=== PATIENT | female | born 1970 | race Asian ===

== ENCOUNTER 2017-01-26 18:45 | Inpatient (IN) | payer MEDICAID ==
[~2017-01-26] VITALS: Ht 157.5 cm; Wt 59.0 kg
[~2017-01-26 18:45] MED LIST: Haloperidol 5mg/ml Inj ONE; LORazepam Inj 2mg/ml 1ml ONE
[2017-01-26] MEDS ORDERED: LORazepam Inj 2mg/ml 1ml IM ONE (19:00)
[2017-01-26] MEDS ORDERED: Haloperidol 5mg/ml Inj IM ONE ×2 (19:00→19:15)
[2017-01-26 19:15] VITALS: BP 102/68
[2017-01-26 20:00] VITALS: BP 102/68
[2017-01-26 20:26] LABS: MEAN CORPUSCULAR HEMOGLOBIN 29.8 PG (27.0-31.0); MEAN CORPUSCULAR HGB CONC 33.2 G/DL (32.0-36.0); MEAN CORPUSCULAR VOLUME 90 FL (80-99); MEAN PLATELET VOLUME 7.6 FL (6.5-10.1); PLATELET COUNT 227 K/UL (150-450); RED BLOOD COUNT 4.33 M/UL (4.20-5.40); RED CELL DISTRIBUTION WIDTH 12.9 % (11.6-14.8); WHITE BLOOD COUNT 19.5 K/UL (4.8-10.8)
[2017-01-26 20:33] LABS: BASOPHILS % (AUTO) 0.4 % (0.0-2.0); EOSINOPHILS % (AUTO) 0.1 % (0.0-3.0); LYMPHOCYTES % (AUTO) 4.8 % (20.0-45.0); MONOCYTES % (AUTO) 5.2 % (1.0-10.0); NEUTROPHILS % (AUTO) 89.5 % (45.0-75.0)
[2017-01-26 20:46] LABS: ACETAMINOPHEN < 10 ug/mL (10-30); ALANINE AMINOTRANSFERASE 10 U/L (3-33); ALBUMIN/GLOBULIN RATIO 1.3 (1.0-2.7); ALCOHOL < 10 mg/dL; ANION GAP 19 (5-15); ASPARTATE AMINO TRANSFERASE 30 U/L (5-40); CALCIUM 9.2 mg/dL (8.6-10.2); CARBON DIOXIDE 22 mEQ/L (20-30); CHLORIDE 98 mEQ/L (98-107); GLOMERULAR FILTRATION RATE 59.7 mL/min (>60); HEMOLYSIS 13; POTASSIUM 2.9 mEQ/L (3.4-4.9); SODIUM 139 mEQ/L (135-145); TOTAL PROTEIN 7.5 g/dL (6.6-8.7)
--- NOTE | 2017-01-26 22:29 | Emergency Room Report ---
History of Present Illness General Chief Complaint: Behavioral Complaint Source: EMS (THO FRANCO) Present Illness HPI The patient is a 46 old female brought in by ambulance accompanied by police department for bizarre behavior. The patient was said to have been running around in the street and striking cars. She does not provide any information at this time. The patient is yelling nonsensically and thrashing about. (THO FRANCO) Allergies: Coded Allergies: UNABLE TO ASSESS (Unverified , 01/26/17) Patient History Past Medical History: see triage record Pertinent Family History: none Last Menstrual Period: unk Reviewed Nursing Documentation: PMH: Agreed, PSxH: Agreed (THO FRANCO) Nursing Documentation-PMH Past Medical History: No Stated History (THO FRANCO) Review of Systems All Other Systems: limited (THO FRANCO.Edda) Physical Exam Vital Signs Date Time Temp Pulse Resp B/P Pulse Ox O2 Delivery O2 Flow Rate FiO2 01/26/17 20:00 97.8 123 20 102/68 100 Room Air Sp02 EP Interpretation: reviewed, normal General Appearance: alert, GCS 15, non-toxic, moderate distress Head: normocephalic, atraumatic Eyes: bilateral eye PERRL, bilateral eye normal inspection Respiratory: chest non-tender, lungs clear, normal breath sounds, speaking full sentences Cardiovascular #1: no gallop, no murmur, no rub, tachycardia Gastrointestinal: normal bowel sounds, non tender, soft, non-distended, no guarding, no rebound Musculoskeletal: back normal, gait/station normal, normal range of motion, non- tender Neurologic: motor strength/tone normal, sensory intact Psychiatric: anxious, other - visual and auditory hallucination Skin: normal color, no rash, warm/dry, well hydrated (THO FRANCO) Medical Decision Making PA Attestation Dr. Artis is my supervising physician. Patient management was discussed with my supervising physician (THO FRANCO) Diagnostic Impression: Primary Impression: Behavioral disorder Additional Impressions: Abrasion of chin Qualified Codes: S00.81XA - Abrasion of other part of head, initial encounter Abrasion of lower back Qualified Codes: S30.810A - Abrasion of lower back and pelvis, initial encounter Leukocytosis Qualified Codes: D72.825 - Bandemia Sepsis Qualified Codes: A41.9 - Sepsis, unspecified organism Altered mental status Qualified Codes: R41.82 - Altered mental status, unspecified Hypokalemia MELCHOR (acute kidney injury) 1St degree AV block ER Course The patient is a 46 yo F presenting for behavioral disorder Differential diagnoses considered but not limited to suicidal ideation, homicidal ideation, depression, drug abuse, psychosis PE: tachycardia. Pt is yelling and is thrashing about. She is a harm to herself and staff Head NC/AT PERRL No MRG Lungs CTA bilat Abd is soft and non tender. UDS negative. Restraints are placed for safety to both patient and staff. She is given IM haldol and ativan and has now calmed down. The patient is signed out to Dr. Lara at this time. Laboratory Tests Test 01/26/17 19:55 White Blood Count 19.5 K/UL (4.8-10.8) H Red Blood Count 4.33 M/UL (4.20-5.40) Hemoglobin 12.9 G/DL (12.0-16.0) Hematocrit 38.8 % (37.0-47.0) Mean Corpuscular Volume 90 FL (80-99) Mean Corpuscular Hemoglobin 29.8 PG (27.0-31.0) Mean Corpuscular Hemoglobin Concent 33.2 G/DL (32.0-36.0) Red Cell Distribution Width 12.9 % (11.6-14.8) Platelet Count 227 K/UL (150-450) Mean Platelet Volume 7.6 FL (6.5-10.1) Neutrophils (%) (Auto) 89.5 % (45.0-75.0) H Lymphocytes (%) (Auto) 4.8 % (20.0-45.0) L Monocytes (%) (Auto) 5.2 % (1.0-10.0) Eosinophils (%) (Auto) 0.1 % (0.0-3.0) Basophils (%) (Auto) 0.4 % (0.0-2.0) Urine HCG, Qualitative Negative Sodium Level 139 mEQ/L (135-145) Potassium Level 2.9 mEQ/L (3.4-4.9) L Chloride Level 98 mEQ/L (98-107) Carbon Dioxide Level 22 mEQ/L (20-30) Anion Gap 19 (5-15) H Blood Urea Nitrogen 8 mg/dL (7-23) Creatinine 1.0 mg/dL (0.5-0.9) H Estimate Glomerular Filtration Rate 59.7 mL/min (>60) Glucose Level 169 mg/dL (74-106) H Calcium Level 9.2 mg/dL (8.6-10.2) Total Bilirubin 0.6 mg/dL (0.0-1.2) Aspartate Amino Transferase (AST) 30 U/L (5-40) Alanine Aminotransferase (ALT) 10 U/L (3-33) Alkaline Phosphatase 45 U/L (35-104) Total Protein 7.5 g/dL (6.6-8.7) Albumin 4.3 g/dL (3.5-5.2) Globulin 3.2 g/dL Albumin/Globulin Ratio 1.3 (1.0-2.7) Salicylates Level < 1 mg/dL (10-30) L Urine Opiates Screen Negative (NEGATIVE) Acetaminophen Level < 10 ug/mL (10-30) L Urine Barbiturates Screen Negative (NEGATIVE) Phencyclidine (PCP) Screen Negative (NEGATIVE) Urine Amphetamines Screen Negative (NEGATIVE) Urine Benzodiazepines Screen Negative (NEGATIVE) Urine Cocaine Screen Negative (NEGATIVE) Urine Marijuana (THC) Screen Negative (NEGATIVE) Serum Alcohol < 10 mg/dL Lab Results Impression There is leukocytosis and hypokalemia. UDS negative. (THO FRANCO P.A.) ER Course Received signout from JAIRO Franco and Dr Rodriguez to reassess this patient See [facility] for initial assessment patient was sedated d/t threat to herself, staff AMS: - VS with consistent tachycardia - Leukocytosis worsens on serial CBC. That level unlikely d/t stress reaction alone - UA: Hematuria. No UTI - CXR No obvious lobar PNA. No PTX. - Blood Cx sent. Empiric Abx given - Utox negative for drugs. - ECG with 1st degree AV blok Multiple areas of trauma - Also noted trauma to chin, left knee, and lower back with large 2 foot abrasion to lower back. Unknown chronicity. Likely acute vs subacute. - Areas cleaned, bandaged - Tetanus given Hypokalemia - Repleted in ED Endorsed to Dr Aragon for Panel/Tele admit at 12:11am Needs sitter. Still in wrist soft restraints for self-protection, trying to remove IV lines (MABEL LARA M.D.) EKG Diagnostic Results Rate: other - 1st degree AV block Rhythm: NSR ST Segments: no acute changes ASA given to the pt in ED: No (MABEL LARA M.D.) Rhythm Strip Diag. Results EP Interpretation: yes Rate: 70 Rhythm: NSR, no PVC's, no ectopy (MABEL LARA M.D.) Chest X-Ray Diagnostic Results Chest X-Ray Diagnostic Results : Chest X-Ray Ordered: Yes # of Views/Limited/Complete: 1 View Indication: Other - AMS EP Interpretation: Yes Interpretation: no consolidation, no effusion, no pneumothorax, no acute cardiopulmonary disease Impression: No acute disease Interpreting ER Provider: Electronically signed by Dr Lara (MABEL LARA M.D.) Last Vital Signs Date Time Temp Pulse Resp B/P Pulse Ox O2 Delivery O2 Flow Rate FiO2 01/26/17 20:00 97.8 123 20 102/68 100 Room Air Status: improved (THO FRANCO P.AJaclyn) Status: improved (MABEL LARA M.D.) Disposition: ADMITTED INPATIENT Condition: Serious Signed Out To: Dr. Lara (THO FRANCO P.A.) Referrals: NOT CHOSEN IPA/,REFERRING (PCP) THO FRANCO Jan 26, 2017 22:29 MABEL LARA M.D. Jan 26, 2017 23:37
[2017-01-26 23:20] LABS: MEAN CORPUSCULAR HEMOGLOBIN 29.8 PG (27.0-31.0); MEAN CORPUSCULAR HGB CONC 33.3 G/DL (32.0-36.0); MEAN CORPUSCULAR VOLUME 89 FL (80-99); MEAN PLATELET VOLUME 6.8 FL (6.5-10.1); PLATELET COUNT 217 K/UL (150-450); RED BLOOD COUNT 4.54 M/UL (4.20-5.40); RED CELL DISTRIBUTION WIDTH 12.9 % (11.6-14.8); WHITE BLOOD COUNT 20.5 K/UL (4.8-10.8)
[2017-01-26 23:40] VITALS: BP 112/59
[2017-01-26] MEDS ORDERED: KCl 10% 20 mEq/15ml liquid NG ONE (23:45)
[2017-01-26 23:47] LABS: APPEARANCE,URINE CLEAR; KETONES,URINE 1+ (NEGATIVE); LEUKOCYTE ESTERASE ,URINE NEGATIVE (NEGATIVE); NITRITE,URINE NEGATIVE (NEGATIVE); PH,URINE 6 (4.5-8.0); PROTEIN,URINE NEGATIVE (NEGATIVE); UROBILINOGEN,URINE NORMAL MG/DL (0.0-1.0)
[2017-01-26 23:54] LABS: SQUAMOUS EPITHELIAL CELL,UR FEW /LPF (NONE/OCC); WBC,URINE 0-2 /HPF (0 - 2)
[2017-01-26 23:57] LABS: ALANINE AMINOTRANSFERASE 17 U/L (3-33); ALBUMIN/GLOBULIN RATIO 1.3 (1.0-2.7); ANION GAP 17 (5-15); ASPARTATE AMINO TRANSFERASE 74 U/L (5-40); CALCIUM 9.2 mg/dL (8.6-10.2); CARBON DIOXIDE 23 mEQ/L (20-30); CHLORIDE 99 mEQ/L (98-107); CREATININE 0.8 mg/dL (0.5-0.9); GLOMERULAR FILTRATION RATE > 60 mL/min (>60); HEMOLYSIS 10; SODIUM 139 mEQ/L (135-145); TOTAL PROTEIN 7.3 g/dL (6.6-8.7)
[2017-01-27] VITALS (9 sets, daily range): BP systolic 91–128; BP diastolic 51–81
[2017-01-27 00:02] LABS: BAND NEUTROPHILS % (MANUAL) 12 % (0-8); BASOPHILS % (MANUAL) 0 % (0-2); EOSINOPHILS % (MANUAL) 0 % (0-3); LYMPHOCYTES % (MANUAL) 5 % (20-45); NEUTROPHILS % (MANUAL) 79 % (45-75); PLATELET ESTIMATE ADEQUATE; PLATELET MORPHOLOGY NORMAL; TOTAL CELLS COUNTED 100
[2017-01-27 00:04] LABS: POTASSIUM 2.7 mEQ/L (3.4-4.9)
[2017-01-27] MEDS ORDERED: Tetanus/Diptheria/Pertussis Vaccine 0.5ml Syr IM ONE (00:15)
[2017-01-27] MEDS ORDERED: KCl 10% 20 mEq/15ml liquid ORAL ONE (00:15)
[2017-01-27] MEDS ORDERED: KCl 10% 20 mEq/15ml liquid ONE ×2 (00:16→00:21)
[2017-01-27] MEDS ORDERED: NKM (05:34)
--- NOTE | 2017-01-27 13:17 | History and Physical Report ---
DATE OF ADMISSION: 01/26/2017 CHIEF COMPLAINT AND REASON FOR HOSPITALIZATION: The patient admitted with leukocytosis, hypokalemia, and paranoid etiology. HISTORY OF PRESENT ILLNESS: The patient is brought into the hospital apparently by the police department with multiple bruises and bizarre behavior. Apparently, she was running around in the street and striking cars per the ER physician. She has multiple bruises. She states that she is being followed by a co-worker. The family is aware that she has been having paranoid thoughts having like this this before. According to the family and patient, she has not been taking any psychotropic medicines in the past and has not been hospitalized for psychiatric problems. Drug screen was negative. HABITS: She is a nondrinker and nonsmoker. No use of illicit drugs. PAST SURGICAL HISTORY: Questionable from surgery as a teenager in her back, etiology is not clear. SYSTEM REVIEW: HEAD EYES, EARS, NOSE, AND THROAT: Vision and hearing is good. ENDOCRINE: No known diabetes or thyroid disease. PULMONARY: No asthma, TB, or chronic cough. CARDIAC: No angina, CT, or palpitations. GASTROINTESTINAL: No gastrointestinal bleeding. She also has abdominal pain. GENITOURINARY: She has regular periods. No dysuria. NEUROLOGIC: No CVA, seizures, or syncope. She was sedated after being in the emergency room apparently thrashing about and agitated. PHYSICAL EXAMINATION: GENERAL: The patient is alert lady, in no acute distress. At this time, calm. VITAL SIGNS: Temperature 97 degrees, pulse 87, respirations 18, and blood pressure 115/71, and O2 saturation 97% on room air. HEAD, EYES, EARS, NOSE, AND THROAT: Sclerae are nonicteric. Ocular motions intact in all directions. Oral mucosa is moist. NECK: No adenopathy or thyroid enlargement. LUNGS: Clear. HEART: Regular rhythm. No murmur. ABDOMEN: Soft without organomegaly or masses. EXTREMITIES: No edema, cyanosis, or clubbing. NEUROLOGIC: She is alert and oriented. Cranial nerves are intact. No focal weakness. No EPS or tremor. SKIN: Shows multiple ecchymoses on all four extremities. There is no obvious fracture. There is some skin tears and excoriation. PSYCHIATRIC: The patient is admitted to paranoid delusions are being followed. IMPRESSION: 1. Likely schizophrenia with a delusional disorder, paranoid. 2. Leukocytosis, possibly from multiple trauma. 3. Hypokalemia. 4. Borderline glucose elevation, 169 and 122. 5. Elevated AST 74, possibly from rhabdomyolysis. PLAN: Laboratories will be checked. We will watch her for any potential problem as far as leukocytosis with no obvious source of infection at this time. We have asked for the contracted psychiatric service to evaluate her for possible inpatient psychiatric transfer. Toni Aragon M.D. DR: JUDI JOB#: [id number] CC:
[2017-01-27] MEDS: 1/2NS w/KCl 20mEq 1000ml 1,000 ML IV SCH (21:38)
[2017-01-28] VITALS: BP 109/68
[2017-01-28] MEDS: 1/2NS w/KCl 20mEq 1000ml 1,000 ML IV SCH ×4 (02:55→22:55)
[2017-01-28 04:00] VITALS: BP 103/62
[2017-01-28 07:11] LABS: BASOPHILS % (AUTO) 0.7 % (0.0-2.0); EOSINOPHILS % (AUTO) 1.5 % (0.0-3.0); LYMPHOCYTES % (AUTO) 18.7 % (20.0-45.0); MEAN CORPUSCULAR HEMOGLOBIN 28.9 PG (27.0-31.0); MEAN CORPUSCULAR HGB CONC 32.6 G/DL (32.0-36.0); MEAN CORPUSCULAR VOLUME 89 FL (80-99); MEAN PLATELET VOLUME 7.7 FL (6.5-10.1); MONOCYTES % (AUTO) 10.3 % (1.0-10.0); NEUTROPHILS % (AUTO) 68.9 % (45.0-75.0); PLATELET COUNT 204 K/UL (150-450); RED BLOOD COUNT 4.13 M/UL (4.20-5.40); RED CELL DISTRIBUTION WIDTH 12.7 % (11.6-14.8)
[2017-01-28 07:38] LABS: ALANINE AMINOTRANSFERASE 21 U/L (3-33); ANION GAP 13 (5-15); ASPARTATE AMINO TRANSFERASE 64 U/L (5-40); CALCIUM 8.6 mg/dL (8.6-10.2); CARBON DIOXIDE 22 mEQ/L (20-30); CHLORIDE 105 mEQ/L (98-107); CREATININE 0.7 mg/dL (0.5-0.9); GLOMERULAR FILTRATION RATE > 60 mL/min (>60); HEMOLYSIS 2; POTASSIUM 3.7 mEQ/L (3.4-4.9); SODIUM 140 mEQ/L (135-145); TOTAL PROTEIN 6.5 g/dL (6.6-8.7)
[2017-01-28 07:39] VITALS: BP 102/64
--- NOTE | 2017-01-28 10:34 | General Progress Note ---
Assessment/Plan Assessment/Plan 1) Schizophrenia 2) Rhbdomyolysis of ? etiology 3) Leukocytosis is resolved Plan: Awaiting Psychiatry opinion and discharge planning Subjective Allergies: Coded Allergies: UNABLE TO ASSESS (Unverified , 01/26/17) Subjective She is not in distress, no c/p or sob, CPK is down to 2480 Objective Last 24 Hour Vital Signs Date Time Temp Pulse Resp B/P Pulse Ox O2 Delivery O2 Flow Rate FiO2 01/28/17 07:39 97.5 86 18 102/64 97 Room Air 01/28/17 04:00 97.9 92 21 103/62 97 Room Air 01/28/17 04:00 108 01/28/17 00:00 74 01/28/17 00:00 97.7 79 20 109/68 98 Room Air 01/27/17 20:00 97.9 81 20 126/81 98 Room Air 01/27/17 20:00 109 01/27/17 16:00 85 01/27/17 15:25 96.8 79 18 96/59 100 Room Air 01/27/17 12:23 97.3 89 18 128/77 96 Room Air 01/27/17 12:00 84 Intake and Output 01/27/17 01/28/17 19:00 07:00 Intake Total 240 ml 1107.5 ml Balance 240 ml 1107.5 ml Intake Oral 240 ml IV Total 1107.5 ml # Voids 4 Laboratory Tests 01/27/17 12:45: Total Creatine Kinase 4442H, Thyroid Stimulating Hormone (TSH) 0.880, Free Thyroxine 1.51 01/28/17 04:35: Total Creatine Kinase 2840H, White Blood Count 10.0#, Red Blood Count 4.13L, Hemoglobin 11.9L, Hematocrit 36.6L, Mean Corpuscular Volume 89, Mean Corpuscular Hemoglobin 28.9, Mean Corpuscular Hemoglobin Concent 32.6, Red Cell Distribution Width 12.7, Platelet Count 204, Mean Platelet Volume 7.7, Neutrophils (%) (Auto) 68.9, Lymphocytes (%) (Auto) 18.7L, Monocytes (%) (Auto) 10.3H, Eosinophils (%) (Auto) 1.5, Basophils (%) (Auto) 0.7, Sodium Level 140, Potassium Level 3.7, Chloride Level 105, Carbon Dioxide Level 22, Anion Gap 13, Blood Urea Nitrogen 4L, Creatinine 0.7, Estimat Glomerular Filtration Rate > 60 , Glucose Level 111H, Calcium Level 8.6, Total Bilirubin 0.9, Aspartate Amino Transf (AST/SGOT) 64H, Alanine Aminotransferase (ALT/SGPT) 21, Alkaline Phosphatase 49, Total Protein 6.5L, Albumin 3.4L, Globulin 3.1, Albumin/ Globulin Ratio 1.0 Height (Feet): 5 Height (Inches): 2.00 Weight (Pounds): 130 General Appearance: WD/WN, alert EENT: PERRL/EOMI, normal ENT inspection Neck: non-tender Cardiovascular: normal peripheral pulses, normal rate Respiratory/Chest: lungs clear Abdomen: normal bowel sounds, non tender Extremities: normal range of motion Neurologic: classifications officer cc/cm II-XII grossly normal PAULINA YEBOAH Jan 28, 2017 10:34
[2017-01-28 11:20] VITALS: BP 108/65
[2017-01-28 15:15] VITALS: BP 111/61
[2017-01-28 20:00] VITALS: BP 124/78
[2017-01-29] VITALS: BP 120/75
[2017-01-29] MEDS: 1/2NS w/KCl 20mEq 1000ml 1,000 ML IV SCH ×3 (03:34→20:24)
[2017-01-29 04:00] VITALS: BP 123/85
[2017-01-29 08:00] VITALS: BP 122/71
--- NOTE | 2017-01-29 10:58 | Wound Care Consultation ---
Wound Assessment Wound Assessment #1: Wound Number: #1 Wound Present on Admission: Yes New Wound: No Status Change of Wound: No Wound Location Body Site Modif: right Wound Location Body Site: other - elbow Wound Type: scab Satinder Test: Does not Satinder Wound Thickness: Full Thickness Wound Length: 1.0 Wound Width: 1.0 Wound Depth: utd Percent of Wound Black/Brown: 100 Wound Drainage Amount: None Wound Drainage Odor: None/Absent Tissue Surrounding Wound: Erythemic Wound General Appearance: Reddened, Blackened, Open to air, Clean/Dry Wound Assessment #2: Wound Number: #2 Wound Present on Admission: Yes New Wound: No Status Change of Wound: No Wound Location Body Site Modif: left Wound Location Body Site: other - elbow Wound Type: scab Satinder Test: Does not Satinder Wound Thickness: Full Thickness Wound Length: 1.0 Wound Width: 1.0 Wound Depth: utd Percent of Wound Black/Brown: 100 Wound Drainage Amount: None Wound Drainage Odor: None/Absent Tissue Surrounding Wound: Erythemic Wound General Appearance: Reddened, Blackened, Open to air, Clean/Dry Wound Assessment #3: Wound Number: #3 Wound Present on Admission: Yes New Wound: No Status Change of Wound: No Wound Location Body Site Modif: other - chin Wound Location Body Site: other Wound Type: other - open wound -etiology unknown,noted site with scab formation. Satinder Test: Does not Satinder Wound Thickness: Full Thickness Wound Length: 1.0 Wound Width: 2.5 Wound Depth: utd Percent of Wound Black/Brown: 100 Wound Drainage Odor: None/Absent Tissue Surrounding Wound: Erythemic Wound General Appearance: Reddened, Blackened, Open to air, Clean/Dry Wound Assessment #4: Wound Number: #4 Wound Present on Admission: Yes New Wound: No Status Change of Wound: No Wound Location Body Site Modif: left Wound Location Body Site: chest Wound Type: other - open wound - etiology unknown. Satinder Test: Does not Satinder Wound Thickness: Full Thickness Wound Length: 6.0 Wound Width: 5.0 Wound Depth: utd Percent of Wound Simla/Red: 40 Percent of Wound Bed Yellow/Wh: 30 Percent of Wound Black/Brown: 30 Wound Drainage Description: Serosanguineous Wound Drainage Amount: Moderate Wound Drainage Odor: None/Absent Tissue Surrounding Wound: Erythemic Wound General Appearance: Reddened, Blackened, Draining Wound Assessment #5: Wound Number: #5 Wound Present on Admission: Yes New Wound: No Status Change of Wound: No Wound Location Body Site Modif: left Wound Location Body Site: knee Wound Type: other - open wound etiology unknown. Satinder Test: Does not Satinder Wound Thickness: Full Thickness Wound Length: 5.0 Wound Width: 4.5 Wound Depth: utd Percent of Wound Bed Yellow/Wh: 50 - yellow noted to wound bed Percent of Wound Black/Brown: 50 - noted scab formation Wound Drainage Description: Serosanguineous Wound Drainage Amount: Moderate Wound Drainage Odor: None/Absent Tissue Surrounding Wound: Erythemic Wound General Appearance: Reddened, Blackened, Draining Wound Assessment #6: Wound Number: #6 Wound Present on Admission: Yes New Wound: No Status Change of Wound: No Wound Location Body Site: sacral - extending to left and right aspect of sacral Wound Type: other - open wound- etiology unknown. Satinder Test: Does not Satinder Wound Thickness: Full Thickness Wound Length: 10.0 Wound Width: 15.0 Wound Depth: utd Percent of Wound Bed Yellow/Wh: 100 Other Colors Identified: noted man color towards center of wound bed. Wound Drainage Description: Serosanguineous Wound Drainage Amount: Copious Wound Drainage Odor: None/Absent Tissue Surrounding Wound: Macerated Wound General Appearance: Reddened, Draining, Necrotic Wound Assessment #7: Wound Number: #7 Wound Present on Admission: Yes New Wound: No Status Change of Wound: No Wound Location Body Site Modif: left, medial Wound Location Body Site: malleolus/ankle - extending to left medial heel . Wound Type: other - open wound etiology unknown. Satinder Test: Does not Satinder Wound Thickness: Full Thickness Wound Length: 10.0 - scattered. Wound Width: 10.0 - scattered Wound Depth: utd Percent of Wound Simla/Red: 50 Percent of Wound Bed Yellow/Wh: 20 Percent of Wound Black/Brown: 30 Wound Drainage Description: Serosanguineous Wound Drainage Amount: Moderate Wound Drainage Odor: None/Absent Tissue Surrounding Wound: Erythemic Wound General Appearance: Reddened, Blackened, Draining Wound Comment #1 right elbow scab. #2 left elbow scab. #3 chin open wound present with scab. #4 left chest open wound etiology unknown. #5 left knee open wound etiology unknown. #6 left medial malleolus extending to left medial heel open wound etiology unknown. #7 sacral extending to left and right sacral open wound etiology unknown. Recommendation. - Local wound care as ordered. -Keep clean and dry. -Turn and reposition. - Optimize nutrition. -Pressure reducing mattress. -Offload affected sites. -Assess and notify MD for any changes of condition noted to skin. MASSIMO ROGEL Jan 29, 2017 10:58
--- NOTE | 2017-01-29 11:26 | Diagnostic Imaging Report ---
Indication: Chest pain Technique: One view of the chest Comparison: None Findings: Lungs and pleural spaces are clear. Heart size is normal. Impression: No acute process This agrees with the preliminary interpretation provided by the emergency room physician
[2017-01-29 11:35] LABS: BASOPHILS % (AUTO) 0.9 % (0.0-2.0); EOSINOPHILS % (AUTO) 3.7 % (0.0-3.0); LYMPHOCYTES % (AUTO) 22.5 % (20.0-45.0); MEAN CORPUSCULAR HEMOGLOBIN 28.8 PG (27.0-31.0); MEAN CORPUSCULAR HGB CONC 31.9 G/DL (32.0-36.0); MEAN CORPUSCULAR VOLUME 90 FL (80-99); MEAN PLATELET VOLUME 7.1 FL (6.5-10.1); MONOCYTES % (AUTO) 6.9 % (1.0-10.0); NEUTROPHILS % (AUTO) 66.1 % (45.0-75.0); PLATELET COUNT 210 K/UL (150-450); RED BLOOD COUNT 4.42 M/UL (4.20-5.40); RED CELL DISTRIBUTION WIDTH 12.8 % (11.6-14.8); WHITE BLOOD COUNT 9.5 K/UL (4.8-10.8)
[2017-01-29 11:59] LABS: ALANINE AMINOTRANSFERASE 25 U/L (3-33); ALBUMIN/GLOBULIN RATIO 1.2 (1.0-2.7); ANION GAP 11 (5-15); ASPARTATE AMINO TRANSFERASE 48 U/L (5-40); CALCIUM 8.8 mg/dL (8.6-10.2); CARBON DIOXIDE 26 mEQ/L (20-30); CHLORIDE 106 mEQ/L (98-107); CREATININE 0.7 mg/dL (0.5-0.9); GLOMERULAR FILTRATION RATE > 60 mL/min (>60); HEMOLYSIS 2; SODIUM 143 mEQ/L (135-145)
[2017-01-29 12:00] VITALS: BP 128/81
--- NOTE | 2017-01-29 12:21 | General Progress Note ---
Assessment/Plan Assessment/Plan 1) Schizophrenia 2) Rhbdomyolysis of ? etiology 3) Leukocytosis is resolved Plan: Awaiting Psychiatry opinion and discharge planning Subjective Allergies: Coded Allergies: UNABLE TO ASSESS (Unverified , 01/26/17) Subjective She is not in distress, no c/p or sob, CPK is pending Objective Last 24 Hour Vital Signs Date Time Temp Pulse Resp B/P Pulse Ox O2 Delivery O2 Flow Rate FiO2 01/29/17 12:00 97.7 77 21 128/81 98 Room Air 01/29/17 08:00 97.9 91 20 122/71 97 Room Air 01/29/17 04:00 77 01/29/17 04:00 97.5 97 20 123/85 99 Room Air 01/29/17 00:00 97.5 102 23 120/75 96 Room Air 01/29/17 00:00 78 01/28/17 20:00 97.0 89 21 124/78 98 Room Air 01/28/17 20:00 108 01/28/17 16:00 93 01/28/17 15:15 98.1 91 18 111/61 99 Room Air Intake and Output 01/28/17 01/29/17 19:00 07:00 Intake Total 1447.5 ml 1845 ml Balance 1447.5 ml 1845 ml Intake Oral 600 ml 120 ml IV Total 847.5 ml 1725 ml # Voids 4 4 Laboratory Tests 01/29/17 11:00: White Blood Count 9.5, Red Blood Count 4.42, Hemoglobin 12.7, Hematocrit 39.9, Mean Corpuscular Volume 90, Mean Corpuscular Hemoglobin 28.8, Mean Corpuscular Hemoglobin Concent 31.9L, Red Cell Distribution Width 12.8, Platelet Count 210, Mean Platelet Volume 7.1, Neutrophils (%) (Auto) 66.1, Lymphocytes (%) (Auto) 22.5, Monocytes (%) (Auto) 6.9, Eosinophils (%) (Auto) 3.7H, Basophils (%) (Auto ) 0.9, Sodium Level 143, Potassium Level 4.0, Chloride Level 106, Carbon Dioxide Level 26, Anion Gap 11, Blood Urea Nitrogen 6L, Creatinine 0.7, Estimat Glomerular Filtration Rate > 60, Glucose Level 140H, Calcium Level 8.8, Total Bilirubin 0.8, Aspartate Amino Transf (AST/SGOT) 48H, Alanine Aminotransferase ( ALT/SGPT) 25, Alkaline Phosphatase 44, Total Creatine Kinase [Pending], Total Protein 7.0, Albumin 3.9, Globulin 3.1, Albumin/Globulin Ratio 1.2 Height (Feet): 5 Height (Inches): 2.00 Weight (Pounds): 130 General Appearance: WD/WN, no apparent distress EENT: PERRL/EOMI Neck: non-tender, supple Cardiovascular: normal peripheral pulses, normal rate, regular rhythm Abdomen: normal bowel sounds, non tender, soft Extremities: normal range of motion 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
[2017-01-29 16:00] VITALS: BP 114/76
--- NOTE | 2017-01-29 19:46 | Consultation ---
History of Present Illness General Chief Complaint: Behavioral Complaint Present Illness HPI 46 yo patient is brought into the hospital apparently by the police department with multiple bruises and bizarre behavior. she was running around in the street and striking car. She has multiple bruises. She states that she is being followed by a co- worker. The family is aware that she has been having paranoid thoughts having like this this before. According to the family and patient, she has not been taking any psychotropic medicines in the past and has not been hospitalized for psychiatric problems. Drug screen was negative. the pt was calm and she was given zyprexa. the pt denied si/hi. was in the room and stated that he would like to take her home. He agreed to take her to a psychiatrist and the pt was calm with no behavioral issues. Allergies: Coded Allergies: UNABLE TO ASSESS (Unverified , 01/26/17) Medication History Scheduled No Known Medications* (NKM - No Known Medications*), 0 ., (Reported) Patient History History Provided By: Patient, Medical Record, PMD Healthcare decision maker Resuscitation status Full Code Advanced Directive on File Past Medical/Surgical History Past Medical/Surgical History: (1) Tachycardia (2) 1St degree AV block (3) Leukocytosis (4) Sepsis (5) Altered mental status (6) Abrasion of chin (7) Abrasion of lower back (8) Hypokalemia (9) Behavioral disorder (10) MELCHOR (acute kidney injury) Review of Systems Constitutional: Reports: malaise, weakness Psychiatric: Reports: anxiety, depressed feelings, emotional problems, hallucinations, prior hx Physical Exam General Appearance: no apparent distress, alert, thin Neurologic: alert, oriented x 3, responsive, depressed affect Last 24 Hour Vital Signs Date Time Temp Pulse Resp B/P Pulse Ox O2 Delivery O2 Flow Rate FiO2 01/29/17 16:00 97.2 85 20 114/76 95 Room Air 01/29/17 12:00 97.7 77 21 128/81 98 Room Air 01/29/17 08:00 97.9 91 20 122/71 97 Room Air 01/29/17 04:00 77 01/29/17 04:00 97.5 97 20 123/85 99 Room Air 01/29/17 00:00 97.5 102 23 120/75 96 Room Air 01/29/17 00:00 78 01/28/17 20:00 97.0 89 21 124/78 98 Room Air 01/28/17 20:00 108 Intake and Output 01/28/17 01/29/17 19:00 07:00 Intake Total 1447.5 ml 1845 ml Balance 1447.5 ml 1845 ml Intake Oral 600 ml 120 ml IV Total 847.5 ml 1725 ml # Voids 4 4 Laboratory Tests Test 01/29/17 11:00 White Blood Count 9.5 K/UL (4.8-10.8) Red Blood Count 4.42 M/UL (4.20-5.40) Hemoglobin 12.7 G/DL (12.0-16.0) Hematocrit 39.9 % (37.0-47.0) Mean Corpuscular Volume 90 FL (80-99) Mean Corpuscular Hemoglobin 28.8 PG (27.0-31.0) Mean Corpuscular Hemoglobin Concent 31.9 G/DL (32.0-36.0) L Red Cell Distribution Width 12.8 % (11.6-14.8) Platelet Count 210 K/UL (150-450) Mean Platelet Volume 7.1 FL (6.5-10.1) Neutrophils (%) (Auto) 66.1 % (45.0-75.0) Lymphocytes (%) (Auto) 22.5 % (20.0-45.0) Monocytes (%) (Auto) 6.9 % (1.0-10.0) Eosinophils (%) (Auto) 3.7 % (0.0-3.0) H Basophils (%) (Auto) 0.9 % (0.0-2.0) Sodium Level 143 mEQ/L (135-145) Potassium Level 4.0 mEQ/L (3.4-4.9) Chloride Level 106 mEQ/L (98-107) Carbon Dioxide Level 26 mEQ/L (20-30) Anion Gap 11 (5-15) Blood Urea Nitrogen 6 mg/dL (7-23) L Creatinine 0.7 mg/dL (0.5-0.9) Estimat Glomerular Filtration Rate > 60 mL/min (>60) Glucose Level 140 mg/dL (74-106) H Calcium Level 8.8 mg/dL (8.6-10.2) Total Bilirubin 0.8 mg/dL (0.0-1.2) Aspartate Amino Transf (AST/SGOT) 48 U/L (5-40) H Alanine Aminotransferase (ALT/SGPT) 25 U/L (3-33) Alkaline Phosphatase 44 U/L (35-104) Total Creatine Kinase 1474 U/L (26-140) H Total Protein 7.0 g/dL (6.6-8.7) Albumin 3.9 g/dL (3.5-5.2) Globulin 3.1 g/dL Albumin/Globulin Ratio 1.2 (1.0-2.7) Height (Feet): 5 Height (Inches): 2.00 Weight (Pounds): 130 Medications Current Medications Medications (Trade) Dose Ordered Sig/Graham Route PRN Reason Start Time Stop Time Status Last Admin Dose Admin Risperidone (RisperDAL) 3 mg BEDTIME ORAL 01/29/17 21:00 02/28/17 20:59 Sodium (0.45%NS w/KCl 20mEq 1000ml) 1,000 ml @ 150 mls/hr Q6H40M IV 01/27/17 20:15 02/26/17 20:14 01/29/17 13:18 Assessment/Plan Status: stable Assessment/Plan dc zyprexa start risperdal 2mg qhs dc home with script f/u with outpt psych Kenneth Echavarria M.D. Jan 29, 2017 19:46
[2017-01-29 20:00] VITALS: BP 148/85
[2017-01-30] VITALS: BP 101/60
[2017-01-30] MEDS: 1/2NS w/KCl 20mEq 1000ml 1,000 ML IV SCH (00:29)
[2017-01-30 04:00] VITALS: BP 123/76
--- NOTE | 2017-01-30 06:07 | General Progress Note ---
Assessment/Plan Assessment/Plan 1) Schizophrenia 2) Rhbdomyolysis of ? etiology 3) Leukocytosis is resolved Plan: Will discharge home with risperdal 2 mg po QHS F/U with psych as o/p Subjective Allergies: Coded Allergies: UNABLE TO ASSESS (Unverified , 01/26/17) Subjective She is not in distress, no c/p or sob, the psych note is appreciated Objective Last 24 Hour Vital Signs Date Time Temp Pulse Resp B/P Pulse Ox O2 Delivery O2 Flow Rate FiO2 01/30/17 04:00 79 01/30/17 00:00 97.6 77 18 101/60 98 Room Air 01/30/17 00:00 75 01/29/17 20:00 98.1 85 20 148/85 97 Room Air 01/29/17 20:00 88 01/29/17 16:00 93 01/29/17 16:00 97.2 85 20 114/76 95 Room Air 01/29/17 12:00 97.7 77 21 128/81 98 Room Air 01/29/17 12:00 74 01/29/17 08:00 115 01/29/17 08:00 97.9 91 20 122/71 97 Room Air Intake and Output 01/29/17 01/30/17 19:00 07:00 Intake Total 1950 ml 1050 ml Balance 1950 ml 1050 ml Intake Oral 600 ml IV Total 1350 ml 1050 ml # Voids 1 Laboratory Tests 01/29/17 11:00: White Blood Count 9.5, Red Blood Count 4.42, Hemoglobin 12.7, Hematocrit 39.9, Mean Corpuscular Volume 90, Mean Corpuscular Hemoglobin 28.8, Mean Corpuscular Hemoglobin Concent 31.9L, Red Cell Distribution Width 12.8, Platelet Count 210, Mean Platelet Volume 7.1, Neutrophils (%) (Auto) 66.1, Lymphocytes (%) (Auto) 22.5, Monocytes (%) (Auto) 6.9, Eosinophils (%) (Auto) 3.7H, Basophils (%) (Auto ) 0.9, Sodium Level 143, Potassium Level 4.0, Chloride Level 106, Carbon Dioxide Level 26, Anion Gap 11, Blood Urea Nitrogen 6L, Creatinine 0.7, Estimat Glomerular Filtration Rate > 60, Glucose Level 140H, Calcium Level 8.8, Total Bilirubin 0.8, Aspartate Amino Transf (AST/SGOT) 48H, Alanine Aminotransferase ( ALT/SGPT) 25, Alkaline Phosphatase 44, Total Creatine Kinase 1474H, Total Protein 7.0, Albumin 3.9, Globulin 3.1, Albumin/Globulin Ratio 1.2 Height (Feet): 5 Height (Inches): 2.00 Weight (Pounds): 130 General Appearance: WD/WN, no apparent distress, alert EENT: PERRL/EOMI Neck: non-tender, normal alignment Cardiovascular: normal rate, regular rhythm Respiratory/Chest: chest wall non-tender, lungs clear Abdomen: normal bowel sounds, non tender Extremities: normal range of motion Neurologic: capture manager II-XII grossly normal, no motor/sensory deficits PAULINA YEBOAH Jan 30, 2017 06:07
[2017-01-30] MEDS ORDERED: RISPERDAL2 MG ORAL ×2 (06:30→06:31)
--- NOTE | 2017-01-30 08:00 | Discharge Summary ---
DATE OF ADMISSION: 01/26/2017 DATE OF DISCHARGE: 01/30/2017 DIAGNOSES OF DISCHARGE: 1. Schizoaffective disorder. 2. Evidence of bruises and rhabdomyolysis of unknown etiology. 3. No signs of acute kidney injury. 4. Leukocytosis, possibly from multiple traumas. CONSULTS: Kenneth Echavarria M.D. from Psychiatry. HISTORY AND PHYSICAL AND HOSPITAL COURSE: For details, please refer to the History and Physical as well as the consults dictated in the chart. This is a very pleasant 46-year-old [place] female, who has been diagnosed with schizoaffective disorder, has been brought to the emergency room of [facility] by printed circuit board reworker because of bizarre behavior and some bruising all over her body. She was found to have some rhabdomyolysis with CPK in the range of 2500 range, and she was admitted and was started on IV fluid and was supposed to go to a psych facility, however, we got a consult from Dr. Echavarria from Psychiatry. She deemed that she is stable to go home on Risperdal 2 mg p.o. at bedtime and follow up as outpatient with the psychiatrist. She is discharged in stable condition on 01/30/2017 with followup with Psychiatry. She did not have any signs of kidney failure as a result of her rhabdomyolysis, which has been resolving during the course of hospitalization. Pepe Chandra M.D. DR: WALLY JOB#: [id number] CC:
--- NOTE | 2017-01-30 13:19 | Cardiology Report ---
APPROVED REPORT EKG Measurement Heart [id number] Sinus rhythm with 1st degree AV block Nonspecific ST abnormality Abnormal ECG
--- NOTE | 2017-01-30 15:53 | General Progress Note ---
Assessment/Plan Status: stable, progressing Assessment/Plan schizophrenia dc f/u with psych out pt dc with risperdal Subjective Neurologic/Psychiatric: Reports: emotional problems Allergies: Coded Allergies: UNABLE TO ASSESS (Unverified , 01/26/17) Subjective the pt is stable doing well. no behavioral issue tolerated risperdal Objective Last 24 Hour Vital Signs Date Time Temp Pulse Resp B/P Pulse Ox O2 Delivery O2 Flow Rate FiO2 01/30/17 04:00 79 01/30/17 04:00 98.1 72 18 123/76 100 Room Air 01/30/17 00:00 97.6 77 18 101/60 98 Room Air 01/30/17 00:00 75 01/29/17 20:00 98.1 85 20 148/85 97 Room Air 01/29/17 20:00 88 01/29/17 16:00 93 01/29/17 16:00 97.2 85 20 114/76 95 Room Air Intake and Output 01/29/17 01/30/17 19:00 07:00 Intake Total 1950 ml 1650 ml Balance 1950 ml 1650 ml Intake Oral 600 ml IV Total 1350 ml 1650 ml # Voids 1 7 # Bowel Movements 4 Height (Feet): 5 Height (Inches): 2.00 Weight (Pounds): 130 General Appearance: no apparent distress, alert, thin Neurologic: alert, oriented x 3, responsive, depressed affect Kenneth Echavarria M.D. Jan 30, 2017 15:53
== END 2017-01-30 10:25 | disposition home or self-care (01) | DRG 760 ==
LOC: EDBD 18:45 → EMR 18:57 → 2E 23:52 → EDBEDREQ 01-27 03:00
DX: F22 Delusional disorders (principal); M62.82 Rhabdomyolysis; F25.9 Schizoaffective disorder, unspecified; E87.6 Hypokalemia; I44.0 Atrioventricular block, first degree; S00.81XA Abrasion of other part of head, initial encounter; S30.810A Abrasion of lower back and pelvis, initial encounter; W22.09XA Striking against other stationary object, initial encounter; Y92.414 Local residential or business street as the place of occurrence of the external cause
CPT/HCPCS: 36415; 71010; 80053; 80300; 80329; 81003; 81025; 82550; 84439; 84443; 85007; 85025; 87040; 87070; 87205; 90471; 90715; 93005